=== PATIENT | male | born 1965 ===

== ENCOUNTER 2017-03-06 06:52 | Inpatient (IN) | payer OTHER ==
[2017-03-06] MEDS ORDERED: Sodium Chloride 0.9% 1,000 ML IV STA (07:29)
--- NOTE | 2017-03-06 07:51 | ED PDOC ---
HPI: General Adult Time Seen by Provider: 03/06/17 07:08 Chief Complaint (Nursing): Upper Extremity Problem/Injury Chief Complaint (Provider): upper arm pain bilateral History Per: Patient, Physician Advisor (Carlos Enrique Power) History/Exam Limitations: no limitations Onset/Duration Of Symptoms: Hrs (3) Current Symptoms Are (Timing): Still Present Location Of Discomfort (Image): 1 - pain area Similar Symptoms Previously: 2 wks ago Additional Complaint(s): 51yo male c/o upper arm pain bilaterally radiating to upper chest wall, worse with movement, feels fatigued. Denies cough, SOB or dyspnea. States had similar symptoms about 2 weeks ago which resolves spontaneously. Works in a [employer] frequently with upper extremities/ lifting. Denies headache, dizziness, syncope , weakness or numbness. Past Medical History Reviewed: Historical Data, Nursing Documentation, Vital Signs Vital Signs: Last Vital Signs Temp 97.5 F L 03/10/17 13:00 Pulse 65 03/10/17 13:00 Resp 20 03/10/17 13:00 BP 118/76 03/10/17 13:00 Pulse Ox 97 03/10/17 13:00 - Medical History PMH: No Chronic Diseases - Surgical History Surgical History: No Surg Hx - Family History Family History: States: Unknown Family Hx - Living Arrangements Living Arrangements: With Family - Social History Current smoker - smoking cessation education provided: Yes Alcohol: Other (beer daily) - Home Medications Home Medications: Ambulatory Orders Medication Instructions Recorded Atorvastatin [Lipitor] 40 mg PO HS tab 03/09/17 Carvedilol [Coreg] 12.5 mg PO Q12 tab 03/09/17 Clopidogrel [Plavix] 75 mg PO DAILY #1 tab 03/09/17 Lisinopril [Zestril] 2.5 mg PO DAILY tab 03/09/17 Aspirin [Adult Low Dose Aspirin EC] 81 mg PO DAILY #30 tablet 03/10/17 Atorvastatin [Lipitor] 40 mg PO DAILY #30 tab 03/10/17 Carvedilol [Coreg] 12.5 mg PO BID #60 tab 03/10/17 Clopidogrel [Plavix] 75 mg PO DAILY #30 tab 03/10/17 Lisinopril [Prinivil] 5 mg PO DAILY #30 tab 03/10/17 - Allergies Allergies/Adverse Reactions: Allergies Allergy/AdvReac Type Severity Reaction Status Date / Time No Known Allergies Allergy Verified 03/06/17 06:58 Review of Systems ROS Statement: Except As Marked, All Systems Reviewed And Found Negative Constitutional: Negative for: Fever, Chills ENT: Negative for: Nose Discharge, Throat Pain Cardiovascular: Positive for: Chest Pain. Negative for: Palpitations Respiratory: Negative for: Cough, Shortness of Breath Gastrointestinal: Negative for: Nausea, Vomiting, Abdominal Pain Genitourinary Male: Negative for: Dysuria, Frequency Musculoskeletal: Positive for: Shoulder Pain, Arm Pain. Negative for: Neck Pain , Back Pain, Hand Pain, Leg Pain, Foot Pain Skin: Negative for: Rash, Lesions, Jaundice Neurological: Negative for: Weakness, Numbness Psych: Negative for: Suicidal ideation Physical Exam - Reviewed Nursing Documentation Reviewed: Yes Vital Signs Reviewed: Yes - Physical Exam Appears: Positive for: Well, Non-toxic, No Acute Distress Head Exam: Positive for: ATRAUMATIC, NORMAL INSPECTION, NORMOCEPHALIC Skin: Positive for: Normal Color, Warm, DRY Eye Exam: Positive for: EOMI, Normal appearance, PERRL ENT: Positive for: Normal ENT Inspection Neck: Positive for: Normal, Painless ROM Cardiovascular/Chest: Positive for: Regular Rate, Rhythm Respiratory: Positive for: CNT, Normal Breath Sounds Gastrointestinal/Abdominal: Positive for: Normal Exam, Bowel Sounds, Soft Back: Positive for: Normal Inspection Extremity: Positive for: Normal ROM Neurologic/Psych: Positive for: Alert, Oriented - Laboratory Results Result Diagrams: 03/08/17 04:20 03/08/17 04:20 - ECG O2 Sat by Pulse Oximetry: 100 Medical Decision Making Medical Decision Making: workup initiated for upper arm and chest pain EKG reveals ST changes, no prior to compare First troponin was negative, but given risk factors, ST changes on EKG, ASA initiated, admitted to Dr Rodriguez for further care. Disposition - Clinical Impression Clinical Impression: ACS (acute coronary syndrome) - Patient ED Disposition Is Patient to be Admitted: Yes - Disposition Disposition Time: 08:50 Condition: GOOD - Pt Status Changed To: Hospital Disposition Of: Observation - POA Present On Arrival: None
[2017-03-06 08:05] LABS: RBC URINE 1 /hpf (0-3); URINE BILIRUBIN NEGATIVE (NEGATIVE); URINE BLOOD NEGATIVE (NEGATIVE); URINE COLOR YELLOW (YELLOW); URINE GLUCOSE (UA) 50 mg/dL (Normal); URINE KETONE NEGATIVE (NEGATIVE); URINE LEUKOCYTE ESTERASE NEG Leu/uL (Negative); URINE PROTEIN 100 mg/dL (NEGATIVE); URINE UROBILINOGEN 0.2-1.0 mg/dL (0.2-1.0); WBC URINE 1 /hpf (0-5)
[2017-03-06 08:06] LABS: BASO % 0.7 % (0.0-2.0); EOS # 0.1 K/uL (0.0-0.7); EOS % 1.5 % (0.0-4.0); HEMATOCRIT 49.4 % (35.0-51.0); LYMPH # 1.7 K/uL (1.0-4.3); LYMPH % 24.2 % (20.0-40.0); MEAN CELL VOLUME 92.9 fl (80.0-94.0); MEAN CORPUSCULAR HEMOGLOBIN 30.2 pg (27.0-31.0); MEAN CORPUSCULAR HGB CONC 32.5 g/dL (33.0-37.0); MEAN PLATELET VOLUME 8.5 fl (7.2-11.7); MONO # 0.7 K/uL (0.0-0.8); MONO % 10.4 % (0.0-10.0); NEUT # 4.3 K/uL (1.8-7.0); NEUT % 63.2 % (50.0-75.0); NRBC % 0.1 % (0.0-0.0); RED CELL DISTRIBUTION WIDTH 14.2 % (11.5-14.5); WHITE BLOOD COUNT 6.9 K/uL (4.8-10.8)
[2017-03-06 08:19] LABS: PARTIAL THROMBOPLASTIN TIME 35.1 Seconds (25.6-37.1)
[2017-03-06 08:24] LABS: ALB/GLOB RATIO 1.3 (1.0-2.1); ALKALINE PHOSPHATASE 80 U/L (38-126); ALT/SGPT 57 U/L (21-72); AST/SGOT 29 U/L (17-59); BILIRUBIN,TOTAL 0.4 mg/dl (0.2-1.3); BLOOD UREA NITROGEN 20 mg/dl (9-20); CALCIUM 8.7 mg/dL (8.4-10.2); CARBON DIOXIDE 25 mmol/L (22-30); CHLORIDE 106 mmol/L (98-107); GFR AFRICAN-AMERICAN > 60; GLUCOSE,RANDOM 159 mg/dL (75-110); POTASSIUM 4.3 MMOL/L (3.6-5.0); SODIUM 141 mmol/l (132-148); TOTAL PROTEIN 7.7 G/DL (6.3-8.2)
--- NOTE | 2017-03-06 09:40 | RAD ---
HISTORY: chest pain/ r/o infiltrate COMPARISON: No prior. TECHNIQUE: Chest PA and lateral FINDINGS: LUNGS: No active pulmonary disease. PLEURA: No significant pleural effusion identified. No pneumothorax apparent. CARDIOVASCULAR: Normal. OSSEOUS STRUCTURES: No significant abnormalities. VISUALIZED UPPER ABDOMEN: Normal. OTHER FINDINGS: None. IMPRESSION: No acute cardiopulmonary disease appreciated.
--- NOTE | 2017-03-06 12:47 | CP.PCM.HP ---
History of Present Illness - History of Present Illness History of Present Illness: CC: BILATERAL ARM PAIN WOKE ME FROM SLEEP HPI: 51 year old male heavy smoker presents to the emergency room with bilateral shoulder and arm pain that woke him from sleep 5am. Pain was described as severe 8 to 9/10 nondescript, associated with a feeling of severe weakness in the arms as well as diaphoresis. He states he has had this twice before, 1 week ago and 3 years ago as well. EKG changes anterolateral ischemia, first troponin neg, second 0.24. Full dose Lovenox initiated with ASA, PLAVIX, COREG, STATIN, Lisinopril added for HTN. EKG repeat in AM. Cardiology consult Dr. Song. Pt is HD stable, NAD. Currently is asymptomatic. To be admitted to telemetry. ROS: per HPI all other systems reviewd and negative by me PMSH: denies FH: denies SH: tobacco heavy smoker, ETOH 3-4 beers daily, NO IVDU. Works at a [employer] NO HOME MEDS NKDA Temp Pulse Resp BP Pulse Ox 97.8 F 74 20 142/88 98 03/06/17 15:45 03/06/17 15:45 03/06/17 15:45 03/06/17 15:45 03/06/17 15:45 Constitutional- cooperative, awake, alert. Head- NCAT, PERRL Eye- PERRL, normal accommodation ENT- normal exam, MMM. Neck- normal inspection, supple, no JVD Respiratory- CTAB, no wheezes rales rhonchi Cardiovascular- RRR, +S1, +S2 no MRG GI/Abdominal- normal bowel sounds, soft, no mass, no hsm Skin- warm, dry Extremities Exam- normal capillary refill, normal inspection Neurological Exam- alert, stable gait Psych- normal mood, normal affect Most Recent Lab Values WBC 6.9 K/uL (4.8-10.8) 03/06/17 07:50 RBC 5.32 Mil/uL (4.40-5.90) 03/06/17 07:50 Hgb 16.1 g/dL (12.0-18.0) 03/06/17 07:50 Hct 49.4 % (35.0-51.0) 03/06/17 07:50 MCV 92.9 fl (80.0-94.0) 03/06/17 07:50 MCH 30.2 pg (27.0-31.0) 03/06/17 07:50 MCHC 32.5 g/dL (33.0-37.0) L 03/06/17 07:50 RDW 14.2 % (11.5-14.5) 03/06/17 07:50 Plt Count 186 K/uL (130-400) 03/06/17 07:50 MPV 8.5 fl (7.2-11.7) 03/06/17 07:50 Neut % (Auto) 63.2 % (50.0-75.0) 03/06/17 07:50 Lymph % (Auto) 24.2 % (20.0-40.0) 03/06/17 07:50 [place] % (Auto) 10.4 % (0.0-10.0) H 03/06/17 07:50 Eos % (Auto) 1.5 % (0.0-4.0) 03/06/17 07:50 Baso % (Auto) 0.7 % (0.0-2.0) 03/06/17 07:50 Neut # 4.3 K/uL (1.8-7.0) 03/06/17 07:50 Lymph # 1.7 K/uL (1.0-4.3) 03/06/17 07:50 [place] # 0.7 K/uL (0.0-0.8) 03/06/17 07:50 Eos # 0.1 K/uL (0.0-0.7) 03/06/17 07:50 Baso # 0.0 K/uL (0.0-0.2) 03/06/17 07:50 PT 10.7 Seconds (9.8-13.1) 03/06/17 07:50 INR 1.0 (0.9-1.2) 03/06/17 07:50 APTT 35.1 Seconds (25.6-37.1) 03/06/17 07:50 Sodium 141 mmol/l (132-148) 03/06/17 07:50 Potassium 4.3 MMOL/L (3.6-5.0) 03/06/17 07:50 Chloride 106 mmol/L (98-107) 03/06/17 07:50 Carbon Dioxide 25 mmol/L (22-30) 03/06/17 07:50 Anion Gap 14 (10-20) 03/06/17 07:50 BUN 20 mg/dl (9-20) 03/06/17 07:50 Creatinine 1.1 mg/dl (0.8-1.5) 03/06/17 07:50 Est GFR ( Amer) > 60 03/06/17 07:50 Est GFR (Non-Af Amer) > 60 03/06/17 07:50 Random Glucose 159 mg/dL (75-110) H 03/06/17 07:50 Calcium 8.7 mg/dL (8.4-10.2) 03/06/17 07:50 Total Bilirubin 0.4 mg/dl (0.2-1.3) 03/06/17 07:50 AST 29 U/L (17-59) 03/06/17 07:50 ALT 57 U/L (21-72) 03/06/17 07:50 Alkaline Phosphatase 80 U/L (38-126) 03/06/17 07:50 Total Creatine Kinase 112 U/L (55-170) 03/06/17 07:50 Troponin I 0.2400 ng/mL (0.00-0.120) H* 03/06/17 14:46 NT-Pro-B Natriuret Pep 18.5 pg/ml (0-900) 03/06/17 07:50 Total Protein 7.7 G/DL (6.3-8.2) 03/06/17 07:50 Albumin 4.4 g/dL (3.5-5.0) 03/06/17 07:50 Globulin 3.3 gm/dL (2.2-3.9) 03/06/17 07:50 Albumin/Globulin Ratio 1.3 (1.0-2.1) 03/06/17 07:50 Urine Color Yellow (YELLOW) 03/06/17 07:50 Urine Clarity Clear (Clear) 03/06/17 07:50 Urine pH 5.0 (5.0-8.0) 03/06/17 07:50 Ur Specific [place] 1.023 (1.003-1.030) 03/06/17 07:50 Urine Protein 100 mg/dL (NEGATIVE) 03/06/17 07:50 Urine Glucose (UA) 50 mg/dL (Normal) 03/06/17 07:50 Urine Ketones Negative mg/dL (NEGATIVE) 03/06/17 07:50 Urine Blood Negative (NEGATIVE) 03/06/17 07:50 Urine Nitrate Negative (NEGATIVE) 03/06/17 07:50 Urine Bilirubin Negative (NEGATIVE) 03/06/17 07:50 Urine Urobilinogen 0.2-1.0 mg/dL (0.2-1.0) 03/06/17 07:50 Ur Leukocyte Esterase Neg [place]ise/uL (Negative) 03/06/17 07:50 Urine RBC (Auto) 1 /hpf (0-3) 03/06/17 07:50 Urine Microscopic WBC 1 /hpf (0-5) 03/06/17 07:50 Influenza Typ A,B (EIA) Negative for flu a/b (NEGATIVE) 03/06/17 07:50 51 year old male heavy smoker presents to the emergency room with bilateral shoulder and arm pain that woke him from sleep 5am. Pain was described as severe 8 to 9/10 nondescript, associated with a feeling of severe weakness in the arms as well as diaphoresis. He states he has had this twice before, 1 week ago and 3 years ago as well. EKG changes anterolateral ischemia, first troponin neg, second 0.24. Full dose Lovenox initiated with ASA, PLAVIX, COREG, STATIN, Lisinopril added for HTN. EKG repeat in AM. Cardiology consult Dr. Song. Pt is HD stable, NAD. Currently is asymptomatic. To be admitted to telemetry. NSTEMI Presented with bilateral arm pain waking from sleep, assoc with moderate diaphoresis and weakness Trop 0.028 and 0.2400 EKG ischemic changes anterolateral leads ASA, PLAVIX, COREG, LIPITOR LISINOPRIL FOR BP CONTROL Full dose Lovenox Cardiology Consult Dr. Song Repeat EKG in AM Present on Admission - Present on Admission Any Indicators Present on Admission: No Past Patient History - Past Social History Smoking Status: Never Smoked - PSYCHIATRIC Hx Substance Use: No - SURGICAL HISTORY Hx Surgeries: No Meds Allergies/Adverse Reactions: Allergies Allergy/AdvReac Type Severity Reaction Status Date / Time No Known Allergies Allergy Verified 03/06/17 06:58 Results - Vital Signs Recent Vital Signs: Last Vital Signs Temp 97.9 F 03/06/17 12:38 Pulse 72 03/06/17 12:38 Resp 20 03/06/17 12:38 BP 141/82 03/06/17 12:38 Pulse Ox 98 03/06/17 12:38 - Labs Result Diagrams: 03/06/17 07:50 03/06/17 07:50 Labs: Laboratory Results - last 24 hr 03/06/17 03/06/17 03/06/17 07:50 07:50 07:50 WBC 6.9 RBC 5.32 Hgb 16.1 Hct 49.4 MCV 92.9 MCH 30.2 MCHC 32.5 L RDW 14.2 Plt Count 186 MPV 8.5 Neut % (Auto) 63.2 Lymph % (Auto) 24.2 [place] % (Auto) 10.4 H Eos % (Auto) 1.5 Baso % (Auto) 0.7 Neut # 4.3 Lymph # 1.7 [place] # 0.7 Eos # 0.1 Baso # 0.0 PT INR APTT Sodium 141 Potassium 4.3 Chloride 106 Carbon Dioxide 25 Anion Gap 14 BUN 20 Creatinine 1.1 Est GFR ( Amer) > 60 Est GFR (Non-Af Amer) > 60 Random Glucose 159 H Calcium 8.7 Total Bilirubin 0.4 AST 29 ALT 57 Alkaline Phosphatase 80 Total Creatine Kinase 112 Troponin I 0.0280 NT-Pro-B Natriuret Pep 18.5 Total Protein 7.7 Albumin 4.4 Globulin 3.3 Albumin/Globulin Ratio 1.3 Urine Color Urine Clarity Urine pH Ur Specific [place] Urine Protein Urine Glucose (UA) Urine Ketones Urine Blood Urine Nitrate Urine Bilirubin Urine Urobilinogen Ur Leukocyte Esterase Urine RBC (Auto) Urine Microscopic WBC Influenza Typ A,B (EIA) Negative for flu a/b 03/06/17 03/06/17 07:50 07:50 WBC RBC Hgb Hct MCV MCH MCHC RDW Plt Count MPV Neut % (Auto) Lymph % (Auto) [place] % (Auto) Eos % (Auto) Baso % (Auto) Neut # Lymph # [place] # Eos # Baso # PT 10.7 INR 1.0 APTT 35.1 Sodium Potassium Chloride Carbon Dioxide Anion Gap BUN Creatinine Est GFR ( Amer) Est GFR (Non-Af Amer) Random Glucose Calcium Total Bilirubin AST ALT Alkaline Phosphatase Total Creatine Kinase Troponin I NT-Pro-B Natriuret Pep Total Protein Albumin Globulin Albumin/Globulin Ratio Urine Color Yellow Urine Clarity Clear Urine pH 5.0 Ur Specific [place] 1.023 Urine Protein 100 Urine Glucose (UA) 50 Urine Ketones Negative Urine Blood Negative Urine Nitrate Negative Urine Bilirubin Negative Urine Urobilinogen 0.2-1.0 Ur Leukocyte Esterase Neg Urine RBC (Auto) 1 Urine Microscopic WBC 1 Influenza Typ A,B (EIA)
[2017-03-06] MEDS ORDERED: Pneumococcal 23-Valent Vaccine IM ONE (14:10)
[2017-03-06] MEDS: Enoxaparin 80 mg Syringe SC SCH ×2 (17:03→21:25)
--- NOTE | 2017-03-06 19:34 | CARD ---
APPROVED REPORT EKG Measurement Heart [id number] WY 130P0 [id number] <Conclusion> Normal sinus rhythm T wave abnormality, consider anterolateral ischemia Abnormal ECG
[2017-03-07 07:49] LABS: BASO % 0.6 % (0.0-2.0); EOS # 0.1 K/uL (0.0-0.7); EOS % 1.1 % (0.0-4.0); HEMATOCRIT 49.5 % (35.0-51.0); LYMPH # 2.2 K/uL (1.0-4.3); LYMPH % 31.2 % (20.0-40.0); MEAN CELL VOLUME 92.9 fl (80.0-94.0); MEAN CORPUSCULAR HEMOGLOBIN 30.1 pg (27.0-31.0); MEAN CORPUSCULAR HGB CONC 32.4 g/dL (33.0-37.0); MEAN PLATELET VOLUME 8.6 fl (7.2-11.7); MONO # 0.7 K/uL (0.0-0.8); MONO % 10.4 % (0.0-10.0); NEUT % 56.7 % (50.0-75.0); NRBC % 0.2 % (0.0-0.0); RED CELL DISTRIBUTION WIDTH 14.4 % (11.5-14.5); WHITE BLOOD COUNT 7.1 K/uL (4.8-10.8)
[2017-03-07 08:18] LABS: THYROID STIMULATING HORMONE 0.81 mIU/ML (0.46-4.68)
[2017-03-07 08:27] LABS: BLOOD UREA NITROGEN 15 mg/dl (9-20); CALCIUM 9.2 mg/dL (8.4-10.2); CARBON DIOXIDE 29 mmol/L (22-30); CHLORIDE 105 mmol/L (98-107); GFR AFRICAN-AMERICAN > 60; GLUCOSE,RANDOM 128 mg/dL (75-110); MAGNESIUM 2.2 MG/DL (1.6-2.3); SODIUM 141 mmol/l (132-148)
[2017-03-07] MEDS: Enoxaparin 80 mg Syringe SC SCH ×2 (08:59→21:42)
--- NOTE | 2017-03-07 13:15 | CP.PCM.PN ---
Subjective - Date & Time of Evaluation Date of Evaluation: 03/07/17 Time of Evaluation: 10:45 - Subjective Subjective: no CP at present no SOB no palpitation no abd pain no fever Objective - Vital Signs/Intake and Output Vital Signs (last 24 hours): Temp Pulse Resp BP Pulse Ox 98.5 F 69 18 128/80 98 03/07/17 12:00 03/07/17 12:00 03/07/17 12:00 03/07/17 12:00 03/07/17 12:00 - Medications Medications: Current Medications Acetaminophen (Tylenol 325mg Tab) 650 mg PO Q6 PRN PRN Reason: Fever >100.4 F Aspirin (Aspirin) 325 mg PO DAILY [facility] Last Admin: 03/07/17 08:58 Dose: 325 mg Atorvastatin Calcium (Lipitor) 20 mg PO HS [facility] Last Admin: 03/06/17 21:24 Dose: 20 mg Carvedilol (Coreg) 12.5 mg PO Q12 [facility] Last Admin: 03/07/17 08:59 Dose: 12.5 mg Clopidogrel Bisulfate (Plavix) 75 mg PO DAILY [facility] Last Admin: 03/07/17 08:59 Dose: 75 mg Enoxaparin Sodium (Lovenox) 80 mg SC Q12 [facility] PRN Reason: Protocol Last Admin: 03/07/17 08:59 Dose: 80 mg Lisinopril (Zestril) 2.5 mg PO DAILY [facility] Last Admin: 03/07/17 08:58 Dose: 2.5 mg Ondansetron HCl (Zofran Inj) 4 mg IVP Q6 PRN PRN Reason: Nausea/Vomiting - Labs Labs: 03/07/17 06:30 03/07/17 06:30 PT 10.7 Seconds (9.8-13.1) 03/06/17 07:50 INR 1.0 (0.9-1.2) 03/06/17 07:50 APTT 35.1 Seconds (25.6-37.1) 03/06/17 07:50 - Constitutional Appears: No Acute Distress - Head Exam Head Exam: ATRAUMATIC, NORMAL INSPECTION, NORMOCEPHALIC - Eye Exam Eye Exam: EOMI, Normal appearance, PERRL Pupil Exam: NORMAL ACCOMODATION - ENT Exam ENT Exam: Mucous Membranes Moist, Normal External Ear Exam - Neck Exam Neck Exam: Full ROM. absent: Meningismus - Respiratory Exam Respiratory Exam: NORMAL BREATHING PATTERN. absent: Respiratory Distress - Cardiovascular Exam Cardiovascular Exam: REGULAR RHYTHM, +S1, +S2 - GI/Abdominal Exam GI & Abdominal Exam: Soft, Normal Bowel Sounds. absent: Tenderness - Extremities Exam Extremities Exam: Full ROM, Normal Capillary Refill. absent: Calf Tenderness - Back Exam Back Exam: Full ROM. absent: CVA tenderness (L), CVA tenderness (R) - Neurological Exam Neurological Exam: Alert, Awake, CN II-XII Intact, Oriented x3 Neuro motor strength exam: Left Upper Extremity: 5, Right Upper Extremity: 5, Left Lower Extremity: 5, Right Lower Extremity: 5 - Psychiatric Exam Psychiatric exam: Normal Affect, Normal Mood - Skin Skin Exam: Dry, Normal Color, Warm Assessment and Plan (1) Non-ST elevation (NSTEMI) myocardial infarction Status: Acute (2) HTN (hypertension) Status: Chronic (3) Tobacco abuse Status: Chronic (4) DVT prophylaxis Status: Acute - Assessment and Plan (Free Text) Assessment: 51 y/o gent with hx of HTN, Heavy smoker, and drinks ETOH daily , came in bec of chest pain radiating to both shoulder accompanied by diaphoresis In ED , EKG changes noted. 2nd Troponin came back + (1) Non-ST elevation (NSTEMI) myocardial infarction Status: Acute Trop + EKG changes started on Therapeutic dose of Lovenox, ASA, Plavix, BB, statin Cardio consulted- plan for Cardiac Cath in am (2) HTN (hypertension) Status: Chronic not on ned med at home started on Coreg and Lisinopril (3) Tobacco abuse Status: Chronic Nicotine patch (4) DVT prophylaxis Status: Acute Lovenox
--- NOTE | 2017-03-07 15:48 | CP.PCM.CON ---
History of Present Illness - History of Present Illness History of Present Illness: ATYPICAL CP WITH BL SHOULDERS AND UPPER ARMS. DRINKS AND SMOKES DAILY. NO FAM HX OF CAD. HAS ELEVATED BP. PTS EKG SHOWS ST CHANGES PTS ECHO IS PENDING PTS TROP TRENDING DOWN Past Patient History - Past Medical History & Family History Past Medical History?: No - Past Social History Smoking Status: Never Smoked - MUSCULOSKELETAL/RHEUMATOLOGICAL Hx Falls: No - PSYCHIATRIC Hx Substance Use: No - SURGICAL HISTORY Hx Surgeries: No - ANESTHESIA Hx Anesthesia: No Meds Allergies/Adverse Reactions: Allergies Allergy/AdvReac Type Severity Reaction Status Date / Time No Known Allergies Allergy Verified 03/06/17 06:58 - Medications Medications: Current Medications Acetaminophen (Tylenol 325mg Tab) 650 mg PO Q6 PRN PRN Reason: Fever >100.4 F Aspirin (Aspirin) 325 mg PO DAILY [facility] Last Admin: 03/07/17 08:58 Dose: 325 mg Atorvastatin Calcium (Lipitor) 20 mg PO HS [facility] Last Admin: 03/06/17 21:24 Dose: 20 mg Carvedilol (Coreg) 12.5 mg PO Q12 [facility] Last Admin: 03/07/17 08:59 Dose: 12.5 mg Enoxaparin Sodium (Lovenox) 80 mg SC Q12 [facility] PRN Reason: Protocol Last Admin: 03/07/17 08:59 Dose: 80 mg Lisinopril (Zestril) 2.5 mg PO DAILY [facility] Last Admin: 03/07/17 08:58 Dose: 2.5 mg Ondansetron HCl (Zofran Inj) 4 mg IVP Q6 PRN PRN Reason: Nausea/Vomiting Results - Vital Signs Recent Vital Signs: Last Vital Signs Temp 98.1 F 03/07/17 15:41 Pulse 67 03/07/17 15:41 Resp 20 03/07/17 15:41 BP 127/77 03/07/17 15:41 Pulse Ox 100 03/07/17 15:41 - Labs Result Diagrams: 03/07/17 06:30 03/07/17 06:30 Labs: Laboratory Results - last 24 hr 03/06/17 03/07/17 03/07/17 20:33 06:30 06:30 WBC 7.1 RBC 5.33 Hgb 16.1 Hct 49.5 MCV 92.9 MCH 30.1 MCHC 32.4 L RDW 14.4 Plt Count 191 MPV 8.6 Neut % (Auto) 56.7 Lymph % (Auto) 31.2 [place] % (Auto) 10.4 H Eos % (Auto) 1.1 Baso % (Auto) 0.6 Neut # 4.0 Lymph # 2.2 [place] # 0.7 Eos # 0.1 Baso # 0.0 Sodium 141 Potassium 5.0 Chloride 105 Carbon Dioxide 29 Anion Gap 12 BUN 15 Creatinine 1.1 Est GFR ( Amer) > 60 Est GFR (Non-Af Amer) > 60 Random Glucose 128 H Calcium 9.2 Magnesium 2.2 Troponin I 0.2300 H* 0.1360 H* TSH 3rd Generation 0.81 Assessment & Plan (1) Troponin level elevated Status: Acute (2) Non-ST elevation (NSTEMI) myocardial infarction Status: Suspected (3) Atypical angina Status: Acute (4) Tobacco abuse Status: Chronic (5) ETOH abuse Status: Chronic (6) Elevated BP without diagnosis of hypertension Status: Acute - Assessment and Plan (Free Text) Plan: GIVEN TROP AND EKG CHANGES PT WILL NEED CARDIAC CATH. HOLD PLAVIX UNTIL AFTER CATH. GIVE LIGHT BREAKFAST IN AM THEN NPO. WILL NEED ECHO DONE PRIOR TO CATH HOLD AM LOVENOX MONITOR LYTES INCREASE BBS NEEDED. DRAW LIPIDS
[2017-03-08 05:47] LABS: HEMATOCRIT 50.3 % (35.0-51.0); MEAN CELL VOLUME 92.4 fl (80.0-94.0); MEAN CORPUSCULAR HEMOGLOBIN 29.6 pg (27.0-31.0); RED CELL DISTRIBUTION WIDTH 14.1 % (11.5-14.5); WHITE BLOOD COUNT 7.2 K/uL (4.8-10.8)
[2017-03-08 05:56] LABS: BLOOD UREA NITROGEN 20 mg/dl (9-20); CALCIUM 9.2 mg/dL (8.4-10.2); CARBON DIOXIDE 29 mmol/L (22-30); CHLORIDE 103 mmol/L (98-107); CHOLESTEROL 219 mg/dL (0-199); GFR AFRICAN-AMERICAN > 60; GLUCOSE,RANDOM 115 mg/dL (75-110); POTASSIUM 4.8 MMOL/L (3.6-5.0); SODIUM 141 mmol/l (132-148)
--- NOTE | 2017-03-08 17:04 | CARD ---
APPROVED REPORT EKG Measurement Heart [id number] CO 130P17 [id number] <Conclusion> Poor data quality, interpretation may be adversely affected Normal sinus rhythm with sinus arrhythmia T wave abnormality, consider anterolateral ischemia Abnormal ECG
--- NOTE | 2017-03-08 18:21 | CP.PCM.PN ---
Subjective - Date & Time of Evaluation Date of Evaluation: 03/08/17 Time of Evaluation: 10:00 - Subjective Subjective: Pt seen prior to Cardiac in am- scheduled to be picked up at 12 noon denies CP no palpitation no SOB no abd pain Objective - Vital Signs/Intake and Output Vital Signs (last 24 hours): Temp Pulse Resp BP Pulse Ox 98.2 F 74 18 113/65 98 03/08/17 12:00 03/08/17 12:00 03/08/17 12:00 03/08/17 12:00 03/08/17 12:00 - Medications Medications: Current Medications Acetaminophen (Tylenol 325mg Tab) 650 mg PO Q6 PRN PRN Reason: Fever >100.4 F Aspirin (Aspirin) 325 mg PO DAILY [facility] Last Admin: 03/08/17 11:01 Dose: Not Given Atorvastatin Calcium (Lipitor) 40 mg PO HS [facility] Carvedilol (Coreg) 12.5 mg PO Q12 [facility] Last Admin: 03/08/17 11:02 Dose: 12.5 mg Enoxaparin Sodium (Lovenox) 80 mg SC Q12 [facility] PRN Reason: Protocol Last Admin: 03/07/17 21:42 Dose: 80 mg Lisinopril (Zestril) 2.5 mg PO DAILY [facility] Last Admin: 03/08/17 11:01 Dose: 2.5 mg Ondansetron HCl (Zofran Inj) 4 mg IVP Q6 PRN PRN Reason: Nausea/Vomiting - Labs Labs: 03/08/17 04:20 03/08/17 04:20 PT 10.7 Seconds (9.8-13.1) 03/06/17 07:50 INR 1.0 (0.9-1.2) 03/06/17 07:50 APTT 35.1 Seconds (25.6-37.1) 03/06/17 07:50 Assessment and Plan (1) Non-ST elevation (NSTEMI) myocardial infarction Status: Acute (2) HTN (hypertension) Status: Chronic (3) Tobacco abuse Status: Chronic (4) DVT prophylaxis Status: Acute - Assessment and Plan (Free Text) Assessment: - Constitutional Appears: No Acute Distress - Head Exam Head Exam: ATRAUMATIC, NORMAL INSPECTION, NORMOCEPHALIC - Eye Exam Eye Exam: EOMI, Normal appearance, PERRL Pupil Exam: NORMAL ACCOMODATION - ENT Exam ENT Exam: Mucous Membranes Moist, Normal External Ear Exam - Neck Exam Neck Exam: Full ROM. absent: Meningismus - Respiratory Exam Respiratory Exam: NORMAL BREATHING PATTERN. absent: Respiratory Distress - Cardiovascular Exam Cardiovascular Exam: REGULAR RHYTHM, +S1, +S2 - GI/Abdominal Exam GI & Abdominal Exam: Soft, Normal Bowel Sounds. absent: Tenderness - Extremities Exam Extremities Exam: Full ROM, Normal Capillary Refill. absent: Calf Tenderness - Back Exam Back Exam: Full ROM. absent: CVA tenderness (L), CVA tenderness (R) - Neurological Exam Neurological Exam: Alert, Awake, CN II-XII Intact, Oriented x3 Neuro motor strength exam: Left Upper Extremity: 5, Right Upper Extremity: 5, Left Lower Extremity: 5, Right Lower Extremity: 5 - Psychiatric Exam Psychiatric exam: Normal Affect, Normal Mood - Skin Skin Exam: Dry, Normal Color, Warm A/P: 51 y/o gent with hx of HTN, Heavy smoker, and drinks ETOH daily , came in bec of chest pain radiating to both shoulder accompanied by diaphoresis In ED , EKG changes noted. 2nd and 3rd Troponin came back +. Cardio consulted- rec Cardiac cath. (1) Non-ST elevation (NSTEMI) myocardial infarction Status: Acute Trop + EKG changes started on Therapeutic dose of Lovenox, ASA, Plavix, BB, statin Cardio consulted- plan for Cardiac Cath today (2) HTN (hypertension) Status: Chronic not on ned med at home started on Coreg and Lisinopril (3) Tobacco abuse Status: Chronic Nicotine patch (4) DVT prophylaxis Status: Acute Lovenox
--- NOTE | 2017-03-09 00:33 | CP.PCM.PN ---
Subjective - Date & Time of Evaluation Date of Evaluation: 03/09/17 Time of Evaluation: 14:00 - Subjective Subjective: INFORMED WRITTEN CONSENT WAS OBTAINED AND PT TAKEN TO [facility] TODAY. CURRENTLY NO CP OR SHOULDER PAIN. Objective - Vital Signs/Intake and Output Vital Signs (last 24 hours): Temp Pulse Resp BP Pulse Ox 98.6 F 60 20 124/77 97 03/08/17 19:28 03/08/17 21:00 03/08/17 19:28 03/08/17 19:28 03/08/17 19:28 - Medications Medications: Current Medications Acetaminophen (Tylenol 325mg Tab) 650 mg PO Q6 PRN PRN Reason: Fever >100.4 F Aspirin (Aspirin) 325 mg PO DAILY [facility] Last Admin: 03/08/17 11:01 Dose: Not Given Atorvastatin Calcium (Lipitor) 40 mg PO HS [facility] Carvedilol (Coreg) 12.5 mg PO Q12 [facility] Last Admin: 03/08/17 11:02 Dose: 12.5 mg Enoxaparin Sodium (Lovenox) 80 mg SC Q12 [facility] PRN Reason: Protocol Last Admin: 03/07/17 21:42 Dose: 80 mg Lisinopril (Zestril) 2.5 mg PO DAILY [facility] Last Admin: 03/08/17 11:01 Dose: 2.5 mg Ondansetron HCl (Zofran Inj) 4 mg IVP Q6 PRN PRN Reason: Nausea/Vomiting - Labs Labs: 03/08/17 04:20 03/08/17 04:20 PT 10.7 Seconds (9.8-13.1) 03/06/17 07:50 INR 1.0 (0.9-1.2) 03/06/17 07:50 APTT 35.1 Seconds (25.6-37.1) 03/06/17 07:50 - Constitutional Appears: Well - Head Exam Head Exam: ATRAUMATIC, NORMAL INSPECTION, NORMOCEPHALIC - Eye Exam Eye Exam: EOMI, Normal appearance, PERRL. absent: Conjunctival injection, Nystagmus, Periorbital swelling, Periorbital tenderness, Scleral icterus Pupil Exam: NORMAL ACCOMODATION, PERRL - ENT Exam ENT Exam: Mucous Membranes Moist, Normal Exam. absent: Mucous Membranes Dry, Normal External Ear Exam, Normal Oropharynx, TM's Normal Bilaterally - Neck Exam Neck Exam: Full ROM, Normal Inspection. absent: Lymphadenopathy - Respiratory Exam Respiratory Exam: Clear to Ausculation Bilateral, NORMAL BREATHING PATTERN. absent: Accessory Muscle Use, Chest Wall Tenderness, Decreased Breath Sounds, Prolonged Expiratory Phase, Rales, Rhonchi, Wheezes, Respiratory Distress, Stridor - Cardiovascular Exam Cardiovascular Exam: REGULAR RHYTHM, +S1, +S2, Murmur. absent: Bradycardia, Tachycardia, Clicks, Diastolic murmur, Gallop, Irregular Rhythm, JVD, RRR, Rubs , +S4 - GI/Abdominal Exam GI & Abdominal Exam: Soft, Normal Bowel Sounds. absent: Bruit, Distended, Firm , Guarding, Rigid, Tenderness, Diminished Bowel Sounds, Hernia, Hyperactive Bowel Sounds, Hypoactive Bowel Sounds, Organomegaly, Pulsatile Mass, Rebound, Mass - Rectal Exam Rectal Exam: Deferred, NORMAL INSPECTION - Exam External exam: NORMAL EXTERNAL EXAM Speculum exam: NORMAL SPECULUM EXAM Bimanual exam: NORMAL BIMANUAL EXAM - Extremities Exam Extremities Exam: Full ROM, Normal Capillary Refill, Normal Inspection. absent : Calf Tenderness, Joint Swelling, Pedal Edema, Tenderness - Back Exam Back Exam: NORMAL INSPECTION. absent: CVA tenderness (L), CVA tenderness (R), Full ROM, muscle spasm, paraspinal tenderness, rash noted, tenderness, vertebral tenderness - Neurological Exam Neurological Exam: Alert, Awake, CN II-XII Intact, Normal Gait, Oriented x3. absent: Abnormal Gait, Altered, Motor Sensory Deficit, Reflexes Normal - Psychiatric Exam Psychiatric exam: Normal Affect, Normal Mood. absent: Agitated, Anxious, Depressed, Flat Affect, Homicidal Ideation, Manic, Suicidal Ideation - Skin Skin Exam: Dry, Intact, Normal Color, Warm. absent: Abrasion, Cyanosis, Diaphoretic, Erythema, Mottled, Pallor, Pallor, Petechiae, Rash, Urticaria, Vesicles Assessment and Plan (1) Troponin level elevated Status: Acute (2) Non-ST elevation (NSTEMI) myocardial infarction Status: Acute (3) Atypical angina Status: Acute (4) Tobacco abuse Status: Chronic (5) ETOH abuse Status: Chronic (6) Elevated BP without diagnosis of hypertension Status: Acute (7) CAD (coronary artery disease), [place] coronary artery Status: Acute
--- NOTE | 2017-03-09 10:24 | CP.PCM.DIS ---
Provider - Provider Date of Admission: 03/06/17 15:59 Attending physician: Meli Rodriguez DO Primary care physician: NO FAMILY PROVIDER Consults: Cardio: Dr Song Time Spent in preparation of Discharge (in minutes): 15 Diagnosis - Discharge Diagnosis (1) Non-ST elevation (NSTEMI) myocardial infarction Status: Acute (2) HTN (hypertension) Status: Chronic (3) Tobacco abuse Status: Chronic (4) DVT prophylaxis Status: Acute Hospital Course - Lab Results Lab Results: Most Recent Lab Values WBC 7.2 K/uL (4.8-10.8) 03/08/17 04:20 RBC 5.45 Mil/uL (4.40-5.90) 03/08/17 04:20 Hgb 16.1 g/dL (12.0-18.0) 03/08/17 04:20 Hct 50.3 % (35.0-51.0) 03/08/17 04:20 MCV 92.4 fl (80.0-94.0) 03/08/17 04:20 MCH 29.6 pg (27.0-31.0) 03/08/17 04:20 MCHC 32.0 g/dL (33.0-37.0) L 03/08/17 04:20 RDW 14.1 % (11.5-14.5) 03/08/17 04:20 Plt Count 200 K/uL (130-400) 03/08/17 04:20 MPV 8.6 fl (7.2-11.7) 03/07/17 06:30 Neut % (Auto) 56.7 % (50.0-75.0) 03/07/17 06:30 Lymph % (Auto) 31.2 % (20.0-40.0) 03/07/17 06:30 [place] % (Auto) 10.4 % (0.0-10.0) H 03/07/17 06:30 Eos % (Auto) 1.1 % (0.0-4.0) 03/07/17 06:30 Baso % (Auto) 0.6 % (0.0-2.0) 03/07/17 06:30 Neut # 4.0 K/uL (1.8-7.0) 03/07/17 06:30 Lymph # 2.2 K/uL (1.0-4.3) 03/07/17 06:30 [place] # 0.7 K/uL (0.0-0.8) 03/07/17 06:30 Eos # 0.1 K/uL (0.0-0.7) 03/07/17 06:30 Baso # 0.0 K/uL (0.0-0.2) 03/07/17 06:30 PT 10.7 Seconds (9.8-13.1) 03/06/17 07:50 INR 1.0 (0.9-1.2) 03/06/17 07:50 APTT 35.1 Seconds (25.6-37.1) 03/06/17 07:50 Sodium 141 mmol/l (132-148) 03/08/17 04:20 Potassium 4.8 MMOL/L (3.6-5.0) 03/08/17 04:20 Chloride 103 mmol/L (98-107) 03/08/17 04:20 Carbon Dioxide 29 mmol/L (22-30) 03/08/17 04:20 Anion Gap 14 (10-20) 03/08/17 04:20 BUN 20 mg/dl (9-20) 03/08/17 04:20 Creatinine 1.1 mg/dl (0.8-1.5) 03/08/17 04:20 Est GFR ( Amer) > 60 03/08/17 04:20 Est GFR (Non-Af Amer) > 60 03/08/17 04:20 Random Glucose 115 mg/dL (75-110) H 03/08/17 04:20 Calcium 9.2 mg/dL (8.4-10.2) 03/08/17 04:20 Magnesium 2.2 MG/DL (1.6-2.3) 03/07/17 06:30 Total Bilirubin 0.4 mg/dl (0.2-1.3) 03/06/17 07:50 AST 29 U/L (17-59) 03/06/17 07:50 ALT 57 U/L (21-72) 03/06/17 07:50 Alkaline Phosphatase 80 U/L (38-126) 03/06/17 07:50 Total Creatine Kinase 112 U/L (55-170) 03/06/17 07:50 Troponin I 0.1360 ng/mL (0.00-0.120) H* 03/07/17 06:30 NT-Pro-B Natriuret Pep 18.5 pg/ml (0-900) 03/06/17 07:50 Total Protein 7.7 G/DL (6.3-8.2) 03/06/17 07:50 Albumin 4.4 g/dL (3.5-5.0) 03/06/17 07:50 Globulin 3.3 gm/dL (2.2-3.9) 03/06/17 07:50 Albumin/Globulin Ratio 1.3 (1.0-2.1) 03/06/17 07:50 Triglycerides 147 mg/DL (0-149) 03/08/17 04:20 Cholesterol 219 mg/dL (0-199) H 03/08/17 04:20 LDL Cholesterol Direct 143 mg/dL (0-129) H 03/08/17 04:20 HDL Cholesterol 45 MG/DL (30-70) 03/08/17 04:20 TSH 3rd Generation 0.81 mIU/ML (0.46-4.68) 03/07/17 06:30 Urine Color Yellow (YELLOW) 03/06/17 07:50 Urine Clarity Clear (Clear) 03/06/17 07:50 Urine pH 5.0 (5.0-8.0) 03/06/17 07:50 Ur Specific [place] 1.023 (1.003-1.030) 03/06/17 07:50 Urine Protein 100 mg/dL (NEGATIVE) 03/06/17 07:50 Urine Glucose (UA) 50 mg/dL (Normal) 03/06/17 07:50 Urine Ketones Negative mg/dL (NEGATIVE) 03/06/17 07:50 Urine Blood Negative (NEGATIVE) 03/06/17 07:50 Urine Nitrate Negative (NEGATIVE) 03/06/17 07:50 Urine Bilirubin Negative (NEGATIVE) 03/06/17 07:50 Urine Urobilinogen 0.2-1.0 mg/dL (0.2-1.0) 03/06/17 07:50 Ur Leukocyte Esterase Neg Denise/uL (Negative) 03/06/17 07:50 Urine RBC (Auto) 1 /hpf (0-3) 03/06/17 07:50 Urine Microscopic WBC 1 /hpf (0-5) 03/06/17 07:50 Influenza Typ A,B (EIA) Negative for flu a/b (NEGATIVE) 03/06/17 07:50 - Hospital Course Hospital Course: 51 y/o gent with hx of HTN, Heavy smoker, and drinks ETOH daily , came in bec of chest pain radiating to both shoulder accompanied by diaphoresis In ED , EKG changes noted. 2nd and 3rd Troponin came back +. Cardio consulted- rec Cardiac cath. Pt underwent LHC - found to have CAD . Dr Song rec CABG, pt transferred to [facility] for higher level of care. (1) Non-ST elevation (NSTEMI) myocardial infarction, CAD Status: Acute Trop + EKG changes started on Therapeutic dose of Lovenox, ASA, Plavix, BB, statin Cardio consulted- rec Cardiac cath - found to have CAD - rec CABG (2) HTN (hypertension) Status: Chronic not on any med at home started on Coreg and Lisinopril (3) Tobacco abuse Status: Chronic Nicotine patch (4) DVT prophylaxis Status: Acute Lovenox Discharge Exam - Head Exam Head Exam: ATRAUMATIC, NORMAL INSPECTION, NORMOCEPHALIC - Eye Exam Eye Exam: EOMI, Normal appearance, PERRL Pupil Exam: NORMAL ACCOMODATION - ENT Exam ENT Exam: Mucous Membranes Moist, Normal External Ear Exam - Neck Exam Neck exam: Full Rom - Respiratory Exam Respiratory Exam: NORMAL BREATHING PATTERN. absent: Respiratory Distress - Cardiovascular Exam Cardiovascular Exam: REGULAR RHYTHM, +S1, +S2 - GI/Abdominal Exam GI & Abdominal Exam: Normal Bowel Sounds, Soft. absent: Tenderness - Back Exam Back exam: FULL ROM. absent: CVA tenderness (L), CVA tenderness (R) - Neurological Exam Neurological exam: Alert, CN II-XII Intact, Oriented x3, Reflexes Normal - Psychiatric Exam Psychiatric exam: Normal Affect, Normal Mood - Skin Skin Exam: Dry, Normal Color, Warm Discharge Plan - Discharge Medications Prescriptions: Clopidogrel [Plavix] 75 mg PO DAILY #1 tab - Follow Up Plan Condition: GOOD Disposition: Trans to Other Acute Care Hosp Additional Instructions: transfer to [facility] [place] for higher level of care - CABG Referrals: FAMILY PROVIDER,NO [Primary Care Provider] -
[2017-03-10] MEDS ORDERED: Enoxaparin 40 mg Syringe SC SCH (10:00)
--- NOTE | 2017-03-10 12:32 | CP.PCM.PN ---
Objective - Vital Signs/Intake and Output Vital Signs (last 24 hours): Temp Pulse Resp BP Pulse Ox 98.2 F 78 18 119/70 98 03/10/17 08:00 03/10/17 09:36 03/10/17 08:00 03/10/17 09:36 03/10/17 08:00 - Medications Medications: Current Medications Acetaminophen (Tylenol 325mg Tab) 650 mg PO Q6 PRN PRN Reason: Fever >100.4 F Aspirin (Aspirin) 325 mg PO DAILY [facility] Last Admin: 03/10/17 09:39 Dose: 325 mg Atorvastatin Calcium (Lipitor) 40 mg PO HS [facility] Last Admin: 03/09/17 22:06 Dose: 40 mg Carvedilol (Coreg) 12.5 mg PO Q12 [facility] Last Admin: 03/10/17 09:35 Dose: 12.5 mg Clopidogrel Bisulfate (Plavix) 75 mg PO DAILY [facility] Last Admin: 03/10/17 09:44 Dose: 75 mg Enoxaparin Sodium (Lovenox) 40 mg SC DAILY [facility] PRN Reason: Protocol Lisinopril (Zestril) 2.5 mg PO DAILY [facility] Last Admin: 03/10/17 09:36 Dose: 2.5 mg Ondansetron HCl (Zofran Inj) 4 mg IVP Q6 PRN PRN Reason: Nausea/Vomiting - Labs Labs: 03/08/17 04:20 03/08/17 04:20 PT 10.7 Seconds (9.8-13.1) 03/06/17 07:50 INR 1.0 (0.9-1.2) 03/06/17 07:50 APTT 35.1 Seconds (25.6-37.1) 03/06/17 07:50 Assessment and Plan (1) Non-ST elevation (NSTEMI) myocardial infarction Status: Acute (2) HTN (hypertension) Status: Chronic (3) Tobacco abuse Status: Chronic (4) DVT prophylaxis Status: Acute
--- NOTE | 2017-03-10 14:56 | CP.PCM.DIS ---
Provider - Provider Date of Admission: 03/06/17 15:59 Attending physician: Meli Rodriguez DO Primary care physician: NO FAMILY PROVIDER Consults: Cardio: Dr Song Time Spent in preparation of Discharge (in minutes): 35 Diagnosis - Discharge Diagnosis (1) Non-ST elevation (NSTEMI) myocardial infarction Status: Acute (2) HTN (hypertension) Status: Chronic (3) Tobacco abuse Status: Chronic (4) DVT prophylaxis Status: Acute (5) CAD (coronary artery disease), [place] coronary artery Status: Acute (6) Multi-vessel coronary artery stenosis Status: Acute (7) Status post coronary angioplasty Status: Acute Hospital Course - Lab Results Lab Results: Most Recent Lab Values WBC 7.2 K/uL (4.8-10.8) 03/08/17 04:20 RBC 5.45 Mil/uL (4.40-5.90) 03/08/17 04:20 Hgb 16.1 g/dL (12.0-18.0) 03/08/17 04:20 Hct 50.3 % (35.0-51.0) 03/08/17 04:20 MCV 92.4 fl (80.0-94.0) 03/08/17 04:20 MCH 29.6 pg (27.0-31.0) 03/08/17 04:20 MCHC 32.0 g/dL (33.0-37.0) L 03/08/17 04:20 RDW 14.1 % (11.5-14.5) 03/08/17 04:20 Plt Count 200 K/uL (130-400) 03/08/17 04:20 MPV 8.6 fl (7.2-11.7) 03/07/17 06:30 Neut % (Auto) 56.7 % (50.0-75.0) 03/07/17 06:30 Lymph % (Auto) 31.2 % (20.0-40.0) 03/07/17 06:30 [place] % (Auto) 10.4 % (0.0-10.0) H 03/07/17 06:30 Eos % (Auto) 1.1 % (0.0-4.0) 03/07/17 06:30 Baso % (Auto) 0.6 % (0.0-2.0) 03/07/17 06:30 Neut # 4.0 K/uL (1.8-7.0) 03/07/17 06:30 Lymph # 2.2 K/uL (1.0-4.3) 03/07/17 06:30 [place] # 0.7 K/uL (0.0-0.8) 03/07/17 06:30 Eos # 0.1 K/uL (0.0-0.7) 03/07/17 06:30 Baso # 0.0 K/uL (0.0-0.2) 03/07/17 06:30 PT 10.7 Seconds (9.8-13.1) 03/06/17 07:50 INR 1.0 (0.9-1.2) 03/06/17 07:50 APTT 35.1 Seconds (25.6-37.1) 03/06/17 07:50 Sodium 141 mmol/l (132-148) 03/08/17 04:20 Potassium 4.8 MMOL/L (3.6-5.0) 03/08/17 04:20 Chloride 103 mmol/L (98-107) 03/08/17 04:20 Carbon Dioxide 29 mmol/L (22-30) 03/08/17 04:20 Anion Gap 14 (10-20) 03/08/17 04:20 BUN 20 mg/dl (9-20) 03/08/17 04:20 Creatinine 1.1 mg/dl (0.8-1.5) 03/08/17 04:20 Est GFR ( Amer) > 60 03/08/17 04:20 Est GFR (Non-Af Amer) > 60 03/08/17 04:20 Random Glucose 115 mg/dL (75-110) H 03/08/17 04:20 Calcium 9.2 mg/dL (8.4-10.2) 03/08/17 04:20 Magnesium 2.2 MG/DL (1.6-2.3) 03/07/17 06:30 Total Bilirubin 0.4 mg/dl (0.2-1.3) 03/06/17 07:50 AST 29 U/L (17-59) 03/06/17 07:50 ALT 57 U/L (21-72) 03/06/17 07:50 Alkaline Phosphatase 80 U/L (38-126) 03/06/17 07:50 Total Creatine Kinase 112 U/L (55-170) 03/06/17 07:50 Troponin I 0.1360 ng/mL (0.00-0.120) H* 03/07/17 06:30 NT-Pro-B Natriuret Pep 18.5 pg/ml (0-900) 03/06/17 07:50 Total Protein 7.7 G/DL (6.3-8.2) 03/06/17 07:50 Albumin 4.4 g/dL (3.5-5.0) 03/06/17 07:50 Globulin 3.3 gm/dL (2.2-3.9) 03/06/17 07:50 Albumin/Globulin Ratio 1.3 (1.0-2.1) 03/06/17 07:50 Triglycerides 147 mg/DL (0-149) 03/08/17 04:20 Cholesterol 219 mg/dL (0-199) H 03/08/17 04:20 LDL Cholesterol Direct 143 mg/dL (0-129) H 03/08/17 04:20 HDL Cholesterol 45 MG/DL (30-70) 03/08/17 04:20 TSH 3rd Generation 0.81 mIU/ML (0.46-4.68) 03/07/17 06:30 Urine Color Yellow (YELLOW) 03/06/17 07:50 Urine Clarity Clear (Clear) 03/06/17 07:50 Urine pH 5.0 (5.0-8.0) 03/06/17 07:50 Ur Specific [place] 1.023 (1.003-1.030) 03/06/17 07:50 Urine Protein 100 mg/dL (NEGATIVE) 03/06/17 07:50 Urine Glucose (UA) 50 mg/dL (Normal) 03/06/17 07:50 Urine Ketones Negative mg/dL (NEGATIVE) 03/06/17 07:50 Urine Blood Negative (NEGATIVE) 03/06/17 07:50 Urine Nitrate Negative (NEGATIVE) 03/06/17 07:50 Urine Bilirubin Negative (NEGATIVE) 03/06/17 07:50 Urine Urobilinogen 0.2-1.0 mg/dL (0.2-1.0) 03/06/17 07:50 Ur Leukocyte Esterase Neg Denise/uL (Negative) 03/06/17 07:50 Urine RBC (Auto) 1 /hpf (0-3) 03/06/17 07:50 Urine Microscopic WBC 1 /hpf (0-5) 03/06/17 07:50 Influenza Typ A,B (EIA) Negative for flu a/b (NEGATIVE) 03/06/17 07:50 - Hospital Course Hospital Course: 51 y/o gent with hx of HTN, Heavy smoker, and drinks ETOH daily , came in bec of chest pain radiating to both shoulder accompanied by diaphoresis In ED , EKG changes noted. 2nd and 3rd Troponin came back +. Cardio consulted- rec Cardiac cath. Pt underwent LHC - found to have CAD . Dr Nohemi raza PCI , pt was transferred to [facility] [place] for PCI and came back after the procedure (1) Non-ST elevation (NSTEMI) myocardial infarction, CAD Status: Acute Trop + EKG changes started on Therapeutic dose of Lovenox, ASA, Plavix, BB, statin Cardio consulted- rec Cardiac cath - found to have CAD - rec PCI Cardiac cath showed 90% LAD and Ramus intermedius stenosis Pt was transferred to [facility] [place] for PCI will d/c home GRoin : no hematoma nor bleeding Pt instructed to cont ASA and Plavix x 1 year (2) HTN (hypertension) Status: Chronic not on any med at home started on Coreg and Lisinopril (3) Tobacco abuse Status: Chronic Nicotine patch (4) DVT prophylaxis Status: Acute Lovenox Discharge Exam - Head Exam Head Exam: ATRAUMATIC, NORMAL INSPECTION, NORMOCEPHALIC - Eye Exam Eye Exam: EOMI, Normal appearance, PERRL Pupil Exam: NORMAL ACCOMODATION - ENT Exam ENT Exam: Mucous Membranes Moist, Normal External Ear Exam - Neck Exam Neck exam: Full Rom - Respiratory Exam Respiratory Exam: NORMAL BREATHING PATTERN. absent: Respiratory Distress - Cardiovascular Exam Cardiovascular Exam: REGULAR RHYTHM, +S1, +S2 - GI/Abdominal Exam GI & Abdominal Exam: Normal Bowel Sounds, Soft. absent: Tenderness - Extremities Exam Extremities exam: full ROM, normal capillary refill, pedal pulses present Additional comments: no groin hematoma nor bleeding - Back Exam Back exam: FULL ROM. absent: CVA tenderness (L), CVA tenderness (R) - Neurological Exam Neurological exam: Alert, CN II-XII Intact, Oriented x3, Reflexes Normal - Psychiatric Exam Psychiatric exam: Normal Affect, Normal Mood - Skin Skin Exam: Dry, Normal Color, Warm Discharge Plan - Discharge Medications Prescriptions: Aspirin [Adult Low Dose Aspirin EC] 81 mg PO DAILY #30 tablet. Atorvastatin [Lipitor] 40 mg PO DAILY #30 tab Carvedilol [Coreg] 12.5 mg PO BID #60 tab Clopidogrel [Plavix] 75 mg PO DAILY #1 tab Clopidogrel [Plavix] 75 mg PO DAILY #30 tab Lisinopril [Prinivil] 5 mg PO DAILY #30 tab - Follow Up Plan Condition: GOOD Disposition: Trans to Other Acute Care [facility] Additional Instructions: ff up with Dr Song in 1 wk appt FP clinic in 1 wk Strict compliance with ASA and Plavix Referrals: FAMILY PROVIDER,NO [Primary Care Provider] - William Song MD [Staff Provider] - [facility] [Outside]
--- NOTE | 2017-03-10 14:58 | CP.PCM.PN ---
Subjective - Date & Time of Evaluation Date of Evaluation: 03/10/17 Time of Evaluation: 14:55 - Subjective Subjective: stable. no cp or groin discomfort. sp pci to prox lad and RAMUS. no tenderness or hematomas b/l femoral sites. pulses nml Objective - Vital Signs/Intake and Output Vital Signs (last 24 hours): Temp Pulse Resp BP Pulse Ox 97.5 F L 65 20 118/76 97 03/10/17 13:00 03/10/17 13:00 03/10/17 13:00 03/10/17 13:00 03/10/17 13:00 - Medications Medications: Current Medications Acetaminophen (Tylenol 325mg Tab) 650 mg PO Q6 PRN PRN Reason: Fever >100.4 F Aspirin (Aspirin) 325 mg PO DAILY [facility] Last Admin: 03/10/17 09:39 Dose: 325 mg Atorvastatin Calcium (Lipitor) 40 mg PO HS [facility] Last Admin: 03/09/17 22:06 Dose: 40 mg Carvedilol (Coreg) 12.5 mg PO Q12 [facility] Last Admin: 03/10/17 09:35 Dose: 12.5 mg Clopidogrel Bisulfate (Plavix) 75 mg PO DAILY [facility] Last Admin: 03/10/17 09:44 Dose: 75 mg Enoxaparin Sodium (Lovenox) 40 mg SC DAILY [facility] PRN Reason: Protocol Last Admin: 03/10/17 12:35 Dose: 40 mg Lisinopril (Zestril) 2.5 mg PO DAILY [facility] Last Admin: 03/10/17 09:36 Dose: 2.5 mg Ondansetron HCl (Zofran Inj) 4 mg IVP Q6 PRN PRN Reason: Nausea/Vomiting - Labs Labs: 03/08/17 04:20 03/08/17 04:20 PT 10.7 Seconds (9.8-13.1) 03/06/17 07:50 INR 1.0 (0.9-1.2) 03/06/17 07:50 APTT 35.1 Seconds (25.6-37.1) 03/06/17 07:50 - Constitutional Appears: Well - Head Exam Head Exam: ATRAUMATIC, NORMAL INSPECTION, NORMOCEPHALIC - Eye Exam Eye Exam: EOMI, Normal appearance, PERRL Pupil Exam: NORMAL ACCOMODATION, PERRL - ENT Exam ENT Exam: Mucous Membranes Moist, Normal Exam - Neck Exam Neck Exam: Full ROM, Normal Inspection. absent: Lymphadenopathy - Respiratory Exam Respiratory Exam: Clear to Ausculation Bilateral, NORMAL BREATHING PATTERN - Cardiovascular Exam Cardiovascular Exam: REGULAR RHYTHM, +S1, +S2, Murmur - GI/Abdominal Exam GI & Abdominal Exam: Soft, Normal Bowel Sounds. absent: Tenderness - Extremities Exam Extremities Exam: Full ROM, Normal Capillary Refill, Normal Inspection. absent : Joint Swelling, Pedal Edema - Back Exam Back Exam: NORMAL INSPECTION - Neurological Exam Neurological Exam: Alert, Awake, CN II-XII Intact, Normal Gait, Oriented x3 - Psychiatric Exam Psychiatric exam: Normal Affect, Normal Mood - Skin Skin Exam: Dry, Intact, Normal Color, Warm Assessment and Plan (1) Troponin level elevated Status: Acute (2) Non-ST elevation (NSTEMI) myocardial infarction Status: Acute (3) Atypical angina Status: Acute (4) Tobacco abuse Status: Chronic (5) ETOH abuse Status: Chronic (6) Elevated BP without diagnosis of hypertension Status: Acute (7) CAD (coronary artery disease), [place] coronary artery Status: Acute (8) Multi-vessel coronary artery stenosis Status: Acute (9) Status post coronary angioplasty Status: Acute - Assessment and Plan (Free Text) Plan: ok for d/c on current meds. any recurrent sx must return to er. f/u in office in 2 weeks. improtance of asa and plavix stressed several times.
[2017-03-10 16:11] VITALS: BP 102/64; PULSE 76; RESP 16; TEMP 98.3; O2SAT 98
== END 2017-03-10 17:00 | disposition home or self-care (01) | DRG 122 ==
LOC: H.ER 06:52 → EDBD 06:52 → H.ERHOLD 09:23 → H.TEL 11:08 → OBSVTOIN 15:59 → H.TEL 03-08 13:58
PROVIDERS: ADMIT Student in an Organized Health Care Education/Training Program; ATTEND Student in an Organized Health Care Education/Training Program
PROC: 3E0234Z Introduction of Serum, Toxoid and Vaccine into Muscle, Percutaneous Approach (ICD-10-PCS; principal; 2017-03-06)
PROC: 4A023N8 Measurement of Cardiac Sampling and Pressure, Bilateral, Percutaneous Approach (ICD-10-PCS; 2017-03-08)
PROC: B205YZZ Plain Radiography of Left Heart using Other Contrast (ICD-10-PCS; 2017-03-08)
DX: I21.4 Non-ST elevation (NSTEMI) myocardial infarction (principal); F10.10 Alcohol abuse, uncomplicated; F17.200 Nicotine dependence, unspecified, uncomplicated; I25.10 Atherosclerotic heart disease of native coronary artery without angina pectoris; Z23 Encounter for immunization; I10 Essential (primary) hypertension